=== PATIENT | female | born 1950 | race African-American/Black ===

== ENCOUNTER 2019-10-11 14:08 | Emergency (ER) | payer MEDICARE, MEDICAID ==
[~2019-10-11] VITALS: Ht 165.1 cm; Wt 59.0 kg
[~2019-10-11 14:08] MED LIST: ASPI-1497 PO; ATOR20TA65 PO; BENA20TA10 PO; CLOP75TA33 PO; HYDR25TA PO; METF-414 PO; METO25TA6 PO; POTA10CA42 PO
[2019-10-11] MEDS ORDERED: LIDOCAINE HCL/PF 1% 10 MG/ML 5ML VIAL IJ ONE (16:30)
[2019-10-11] MEDS ORDERED: TETANUS, DIPHTHERIA, PERTUSSIS VAC/PF 0.5ML (>7YR OLD) IM ONE (16:30)
[2019-10-11] MEDS ORDERED: BACITRACIN ZINC OINT UDPKT TOP ONE (16:30)
[2019-10-11 17:38] VITALS: BP 132/76
== END 2019-10-11 17:12 | disposition home or self-care (01) ==
LOC: ER 14:30
DX: S61.012A Laceration without foreign body of left thumb without damage to nail, initial encounter (principal); E11.9 Type 2 diabetes mellitus without complications; I10 Essential (primary) hypertension; E78.5 Hyperlipidemia, unspecified; I25.10 Atherosclerotic heart disease of native coronary artery without angina pectoris; Z86.73 Personal history of transient ischemic attack (TIA), and cerebral infarction without residual deficits; Z95.0 Presence of cardiac pacemaker; Z88.2 Allergy status to sulfonamides; Z88.6 Allergy status to analgesic agent; Z79.899 Other long term (current) drug therapy; Z79.82 Long term (current) use of aspirin; W26.0XXA Contact with knife, initial encounter; Y93.G3 Activity, cooking and baking; Y92.010 Kitchen of single-family (private) house as the place of occurrence of the external cause; Y99.8 Other external cause status
CPT/HCPCS: 90471; 90715; 99283; J3490

== ENCOUNTER 2025-04-01 09:31 | Emergency (ER) | payer BC, MEDICAID ==
[~2025-04-01] VITALS: Ht 167.6 cm; Wt 82.0 kg
[~2025-04-01 09:31] MED LIST changes: -ASPI-1497 PO; +BENA-8 PO; -BENA20TA10 PO; +MELO-105 MT; +MENT118G TP; -POTA10CA42 PO; +POTA10CA93 PO
[2025-04-01 09:45] VITALS: O2SAT 99
[2025-04-01] MEDS: ACETAMINOPHEN 325MG TABLET PO ONE (11:24)
[2025-04-01] MEDS: IBUPROFEN 600MG TABLET PO ONE (11:24)
[2025-04-01] MEDS ORDERED: TOPUD MT (14:01)
[2025-04-01] MEDS ORDERED: TRAM50TA3 MT (14:01)
[2025-04-01 14:41] VITALS: BP 154/87; PULSE 60; RESP 16; TEMP 36.9; O2SAT 100
== END 2025-04-01 15:33 | disposition home or self-care (01) ==
LOC: ER 09:31
DX: M47.812 Spondylosis without myelopathy or radiculopathy, cervical region (principal); I10 Essential (primary) hypertension; E11.9 Type 2 diabetes mellitus without complications; Z88.2 Allergy status to sulfonamides; Z88.5 Allergy status to narcotic agent; Z79.899 Other long term (current) drug therapy; Z86.73 Personal history of transient ischemic attack (TIA), and cerebral infarction without residual deficits
CPT/HCPCS: 72040; 72100; 99284